=== PATIENT | female | born 1970 | race Caucasian/White ===

== ENCOUNTER 2025-01-19 10:15 | Outpatient (AMB) | payer OTHER, SELFPAY ==
--- NOTE | 2025-01-19 10:17 | A.OFFVIS_ITS ---
Intake Visit Reasons: DIRECTOR OF RESIDENTIAL SERVICES/Keren referral for VV Intake Note: New patient presents for VV. States she has varicose veins that have appeared on her right leg about 2 months ago. Patient also has numbness in her right foot and leg. Accompanied by: Self / Same As Patient Allergies No Known Allergies Allergy (Verified 01/19/25 10:19) HPI HPI DIRECTOR OF RESIDENTIAL SERVICES/Keren referral for VV: Details: The patient is a 54-year-old female presenting with concerns regarding varicose veins and associated symptoms in the lower extremities. The patient reports a history of varicose veins for over 10 years, initially advised to wear compression stockings by a vascular doctor. She admits to inconsistent use of compression stockings, particularly during hot weather, which exacerbated the visibility and discomfort of the veins. Recently, she has experienced numbness in her foot, particularly at night, leading to concerns about circulation. She attempted to alleviate symptoms by m assaging the area and jogging in place, which resulted in a bruise. The patient has a significant history of deep vein thrombosis and pulmonary embolism in 2011, attributed to control use. She was hospitalized and treated with anticoagulants, and she continues to take Xarelto as a lifelong preventative measure. It has been affecting there daily activities including walking. It is noted m ore so in right leg. Patient denies any previous venous surgery or injections. Patient positive for DVT back in 2011 with saddle massive PE Patient denies any history of phlebitis. Trial of compression includes - [id number] for several years They now present for vascular evaluation regarding their varicose veins. Review of Systems Const Reports as per HPI ENT Reports no additional complaints Card Denies chest pain, Denies chest pain at rest and Denies chest pain with activity Resp Denies chest congestion and Denies cough GI Reports no additional complaints Musc Details: pain over varicosities, aching of lower extremities, swelling, cramping, heaviness and tiredness, itching Denies abnormal gait Skin/Breast Reports pruritus and Denies wounds Neuro Reports no additional complaints and Denies abnormal gait Psych Denies no additional complaints Physical Exam Const General: cooperative, healthy appearing and comfortable Orientation/consciousness: oriented to person, oriented to place and oriented to time Neck Carotids: no bruits Chest Chest palpation & inspection: normal inspection of the chest and normal palpation of entire chest wall Resp Effort & Inspection: normal respiratory effort and able to speak in complete sentences Cardio Rate: regular rate Heart sounds: S1 normal heart sound present and S2 normal heart sound present Peripheral pulses: Peripheral pulses 2+ throughout GI Inspection: Yes normal to inspection Skin Other: +2 edema, large rope-like varicosities greater than 4 mm right calf CEAP Classification C4 - skin color changes Ep - Etiology Primary As - superficial veins P - reflux General skin exam: dry skin Neuro General: oriented to person, oriented to place and oriented to time Extrem Right lower extremity: full ROM, normal capillary refill and edema Left lower extremity: full ROM, normal capillary refill and edema Psych Mental Status: mental status grossly normal Assessment & Plan Assessment & Plan (1) Varicose veins of right lower extremity with inflammation: Code(s): I83.11 - Varicose veins of right lower extremity with inflammation Category: Medical Plan: In short, the patient has evidence of venous insufficiency. I have discussed the pathophysiology with the patient. In addition I have provided informational material regarding venous disease to the patient. We have discussed conservative measures including compression, elevation, and exercise. I have also provided a handout regarding appropriate use of compression stockings and where to purchase good compression stockings as well. I have taken the liberty of ordering venous insufficiency testing with the patient. They will follow up with me after testing. The patient had an opportunity to ask questions regarding the treatment plan. All questions were answered. Imaging studies, laboratory studies and physical exam results were discussed and reviewed in detail. No major barriers to understanding were identified. The patient expressed understanding and agreem ent with the above treatment plan. The patient is aware they should contact our office by phone for worsening of the current condition or the appearance of new symptoms. Thank you for allowing me to participate in the vascular care of this patient. If you have any questions or concerns regarding the treatment for the above condition please do not hesitate to contact me. The office telephone con [facility] is [phone]. This note is constructed using voice recognition software. While every effort has been made to ensure accuracy, front office clerk errors may have been included. Thank you for allowing me to participate in the care of your patient. Yours sincerely, Stanley Flores MD, FACS, R.P.V.I. Orders: Orders US venous duplex LE BI Today I83.11 - Varicose veins of right lower extremity with inflammation Coding Level of Care Code New Pt Level 4 (98156) Complex EM visit Add On G2211 Diagnoses Varicose veins of right lower extremity with inflammation I83.11
== END 2025-01-19 10:37 | disposition home or self-care (01) ==
LOC: HO.HVS 10:16
PROVIDERS: PCP Internal Medicine; Visit Provider Surgery Vascular Surgery
DX: I83.11 Varicose veins of right lower extremity with inflammation (principal)
CPT/HCPCS: 99204

== ENCOUNTER → 2025-01-19 10:15 | Outpatient (BNVA) | payer OTHER, SELFPAY | PROVIDERS: PCP Internal Medicine; Visit Provider Surgery Vascular Surgery | DX: I83.11 Varicose veins of right lower extremity with inflammation (principal) | CPT/HCPCS: 99202 ==

== ENCOUNTER 2025-03-09 08:24 | Outpatient (REF) | payer OTHER, SELFPAY ==
--- NOTE | ~2025-03-09 | US_ITS ---
EXAMINATION: US LOWER EXTREMITY VENOUS (REFLUX EXAM), BILATERAL CLINICAL INFORMATION: I83.11 - Varicose veins of right lower extremity with inflammation COMPARISON: None. TECHNIQUE: Color flow triplex imaging and compression Doppler was performed to evaluate both the deep and the superficial systems bilaterally. To evaluate the superficial system, the examination was performed in the reverse Trendelenburg position. Color-flow Doppler ultrasound and compression ultrasound were utilized. In addition, maneuvers were utilized to demonstrate reflux. FINDINGS: 1. DEEP VENOUS ULTRASOUND OF THE RIGHT LOWER EXTREMITY: Common Femoral Vein: Compressible, normal respiratory variation and augmented flow. Femoral Vein: Compressible, normal color flow and augmentation. Popliteal Vein: Compressible, normal augmentation. Deep Reflux: There is no evidence of reflux in the deep system in either the common femoral vein, superficial femoral or the popliteal vein. There is no evidence of a Jackson's cyst. 2. SUPERFICIAL ULTRASOUND WITH DOPPLER OF RIGHT LOWER EXTREMITY: GREAT SAPHENOUS VEIN: Saphenofemoral Junction: 0.8 cm; Reflux: 0 ms Proximal Thigh: 0.5 cm; Reflux: 0 ms Mid Thigh: 0.6 cm; Reflux: 0 ms Distal Thigh: 0.6 cm; Reflux: 0 ms At Knee: 0.5 cm; Reflux: 0 ms Proximal Calf: 0.4 cm; Reflux: 0 ms Mid Calf: 0.3 cm; Reflux: 0 ms Distal Calf: 0.4 cm; Reflux: 0 ms DUPLICATED MEDIAL GREAT SAPHENOUS VEIN: Diameter: 0.3 to 0.4 cm Reflux: NA DUPLICATED LATERAL GREAT SAPHENOUS VEIN: Diameter: None imaged Reflux: NA SMALL SAPHENOUS VEIN: Saphenopopliteal Junction: 1.0 cm; Reflux: 0 ms Proximal: 0.3 cm; Reflux: 0 ms Distal: 0.3 cm; Reflux: 0 ms VEIN OF GIACOMINI: Size: NA Reflux: NA PERFORATORS: Location: Mid calf 21 cm from the heel Size: 0.4 cm Reflux: 1068 ms reflux. Second tow mate in the mid calf measuring 0.3 cm without reflux. VARICOSITIES: Location: Thigh and calf Size: 0.3 to 0.4 cm Reflux: Maximum 2.8 second reflux in the mid calf and 3. DEEP VENOUS ULTRASOUND OF THE LEFT LOWER EXTREMITY: Common Femoral Vein: Compressible, normal respiratory variation and augmented flow. Femoral Vein: Compressible, normal color flow and augmentation. Popliteal Vein: Compressible, normal augmentation. Deep Reflux: There is no evidence of reflux in the deep system in either the common femoral vein, superficial femoral or the popliteal vein. There is no evidence of a Jackson's cyst. 4. SUPERFICIAL ULTRASOUND WITH DOPPLER OF LEFT LOWER EXTREMITY: GREAT SAPHENOUS VEIN: Saphenofemoral Junction: 0.9 cm; Reflux: 0 ms Proximal Thigh: 0.5 cm; Reflux: 0 ms Mid Thigh: 0.4 cm; Reflux: 0 ms Distal Thigh: 0.5 cm; Reflux: 0 ms At Knee: 0.5 cm; Reflux: 0 ms Proximal Calf: 0.3 cm; Reflux: 0 ms Mid Calf: 0.2 cm; Reflux: 0 ms Distal Calf: 0.3 cm; Reflux: 0 ms DUPLICATED MEDIAL GREAT SAPHENOUS VEIN: Diameter: None imaged Reflux: NA DUPLICATED LATERAL GREAT SAPHENOUS VEIN: Diameter: None imaged. Reflux: NA SMALL SAPHENOUS VEIN: Saphenopopliteal Junction: 0.3 cm; Reflux: 0 ms Proximal: 0.3 cm; Reflux: 0 ms Distal: 0.2 cm; Reflux: 0 ms VEIN OF GIACOMINI: Size: NA Reflux: NA PERFORATORS: Location: None imaged Size: NA Reflux: NA VARICOSITIES: Location: Thigh and calf Size: 3 mm Reflux: NA US/US venous insuf bilat IMPRESSION: Right: No evidence of DVT or deep venous reflux. Minimally dilated greater saphenous vein measuring 6 mm. No greater saphenous vein reflux. Slightly dilated lesser saphenous vein at the saphenofemoral popliteal junction measuring 1 cm. No reflux. Permit Technician in the mid calf measuring 4 mm with one second reflux. Multiple varicosities in the calf and thigh measuring 3 to 4 mm m with up to 2.8 second reflux. Left: No evidence of DVT or deep venous reflux. Upper normal size greater saphenous vein measuring 5 mm. No reflux. Normal caliber lesser saphenous vein without reflux. Small varicosities in the thigh and calf measuring up to 3 mm without reflux. Electronically signed by: Olivia Burciaga MD 03/09/2025 09:54 AM [facility]
== END 2025-03-09 08:25 | disposition home or self-care (01) ==
LOC: HO.US 08:24
PROVIDERS: PCP Internal Medicine; Visit Provider Surgery Vascular Surgery
DX: I83.11 Varicose veins of right lower extremity with inflammation (principal)
CPT/HCPCS: 93970

== ENCOUNTER → 2025-03-09 08:26 | Outpatient (BNV) | payer OTHER, SELFPAY | PROVIDERS: PCP Internal Medicine; Visit Provider Radiology Diagnostic Radiology | DX: I83.11 Varicose veins of right lower extremity with inflammation (principal) | CPT/HCPCS: 93970 ==